=== PATIENT | male | born 1960 | race Caucasian/White ===

== ENCOUNTER 2021-01-21 01:12 | Observation (INO) ==
[2021-01-21] MEDS ORDERED: ALBUTEROL/IPRATROPIUM 3 ML NEB RESP TX STA (02:32)
[2021-01-21] MEDS ORDERED: methylPREDNISolone SOD SUC 125 MG/2 ML VIAL IV STA (02:32)
[2021-01-21 04:13] LABS: Bilirubin,Urine Negative (Negative); Blood, Urine Small mg/dL (Negative); Glucose,Urine (UA) Negative (Negative); Ketones,Urine Negative (Negative); Nitrite,Urine Negative (Negative); Protein,Urine Negative; RBC,Urine <1 /HPF (0-4); Urine Appearance CLEAR (Clear); Urine Color Yellow (Yellow); Urine Urobilinogen < 2.0 EU/DL (0.2-1.0)
[2021-01-21 04:13] LABS: Basophils % 0.5 % (0.0-0.8); Eosinophils # 0.2 10*3/uL (0.0-0.87); Eosinophils % 5.6 % (0.00-10.9); Hemoglobin 11.3 GM/DL (14.0-18.0); Immature Granulocytes % 0.2 %; Immature Granulocytes Absolute 0.01 #; Lymphocytes # 1.5 10*3/uL (1.4-4.0); Lymphocytes % 34.3 % (21.2-54.2); Mean Corpuscular HGB Conc 32.3 GM/DL (32-36); Mean Corpuscular Volume 90.4 FL (87-102); Mean Platelet Volume 9.6 FL (9.6-12.0); Monocytes % 8.5 % (1.7-12.7); Neutrophils % 50.9 % (38.7-73.9); Platelet Count 209 T/CUMM (130-400); Red Blood Count 3.87 MC/CUMM (3.8-5.5); Red Cell Distribution Width 13.8 % (9.3-17.3); White Blood Count 4.3 T/CUMM (4-12)
[2021-01-21 04:31] LABS: Albumin 2.9 G/DL (3.4-5.0); Bilirubin,Total 0.5 MG/DL (0.20-1.00); Calcium 8.6 MG/DL (8.5-10.1); Potassium 4.3 MMOL/L (3.5-5.1); Total Protein 6.6 G/DL (6.4-8.2)
[2021-01-21] MEDS ORDERED: ACETAMINOPHEN 325 MG TABLET PO PRN (05:37)
[2021-01-21] MEDS ORDERED: DEXTROSE 50% 25 GM/50 ML VIAL IV PRN (05:37)
[2021-01-21] MEDS ORDERED: GLUCAGON 1 MG VIAL IM PRN (05:37)
[2021-01-21] MEDS ORDERED: SODIUM CHLORIDE 0.9% 1,000 ML IV STA (05:47)
[2021-01-21] MEDS ORDERED: SODIUM CHLORIDE 0.9% 1,000 ML IV SCH (06:00)
[2021-01-21 06:50] LABS: % Iron Saturation 17.9 % (18-50)
[2021-01-21 07:33] LABS: Hematocrit 37.3 VOL% (42.0-52.0); Hemoglobin 12.3 GM/DL (14.0-18.0)
[2021-01-21] MEDS: ALBUTEROL/IPRATROPIUM 3 ML NEB RESP TX SCH ×3 (07:50→20:25)
[2021-01-21] MEDS: metroNIDAZOLE INJ 500 MG/100 ML PREMIX IV SCH ×2 (10:16→16:38)
[2021-01-21] MEDS: PANTOPRAZOLE 40 MG VIAL IV SCH ×2 (10:16→21:15)
[2021-01-21 11:23] LABS: Hepatitis B Core IgM Quant 0.19 Index; Hepatitis B Surface Ag Quant < 0.10 Index; Hepatitis B Surface Ag Result Non-Reactive (NonReactive); Hepatitis C Virus Ab Quant 7.37 Index
[2021-01-21 12:22] LABS: Hematocrit 32.9 VOL% (42.0-52.0); Hemoglobin 10.6 GM/DL (14.0-18.0)
[2021-01-21 15:38] LABS: Hepatitis C Virus Ab Quant 5.58 Index
[2021-01-21] MEDS: FERROUS SULFATE 325 MG TABLET PO SCH (16:38)
[2021-01-21] MEDS: SODIUM CHLORIDE 0.9% 1,000 ML IV SCH (16:40)
[2021-01-21 19:38] LABS: Hematocrit 31.1 VOL% (42.0-52.0)
[2021-01-21] MEDS: cefTRIAXone 1,000 MG in SODIUM CHLORIDE 0.9% 100 ML IV SCH (21:15)
[2021-01-21] MEDS: DIAZEPAM 5 MG TABLET PO SCH (21:15)
[2021-01-22 01:54] LABS: Hematocrit 29.3 VOL% (42.0-52.0); Hemoglobin 9.7 GM/DL (14.0-18.0)
[2021-01-22] MEDS: ALBUTEROL/IPRATROPIUM 3 ML NEB RESP TX SCH ×4 (02:10→19:10)
[2021-01-22] MEDS: metroNIDAZOLE INJ 500 MG/100 ML PREMIX IV SCH ×3 (03:15→17:25)
[2021-01-22 05:16] LABS: Hematocrit 29.2 VOL% (42.0-52.0); Hemoglobin 9.5 GM/DL (14.0-18.0); Immature Granulocytes % 0.4 %; Immature Granulocytes Absolute 0.02 #; Lymphocytes # 0.5 10*3/uL (1.4-4.0); Lymphocytes % 9.6 % (21.2-54.2); Mean Corpuscular HGB Conc 32.5 GM/DL (32-36); Monocytes % 6.1 % (1.7-12.7); Neutrophils % 83.9 % (38.7-73.9); Platelet Count 204 T/CUMM (130-400); Red Blood Count 3.32 MC/CUMM (3.8-5.5); Red Cell Distribution Width 13.6 % (9.3-17.3); White Blood Count 4.8 T/CUMM (4-12)
[2021-01-22 05:57] LABS: Calcium 8.1 MG/DL (8.5-10.1); Osmolality,Calculated 280.8 MOS/KG (273-304); Potassium 3.3 MMOL/L (3.5-5.1); Thyroid Stimulating Hormone 0.39 uIU/ml (0.358-3.74)
[2021-01-22] MEDS: LEVOTHYROXINE 25 MCG TABLET PO SCH (06:01)
[2021-01-22] MEDS ORDERED: LACTATED RINGERS 1,000 ML IV SCH (08:00)
[2021-01-22] MEDS: SODIUM CHLORIDE 0.9% 1,000 ML IV SCH ×2 (08:28→14:13)
[2021-01-22] MEDS: PANTOPRAZOLE 40 MG VIAL IV SCH ×2 (08:29→23:04)
[2021-01-22] MEDS: TRIAMCINOLONE 0.1% OINT 15 GM TUBE TOP SCH (08:30)
[2021-01-22] MEDS: DIAZEPAM 5 MG TABLET PO SCH ×2 (09:39→23:02)
[2021-01-22] MEDS: MULTIVITAMIN (CENTRUM) TABLET PO SCH (09:39)
[2021-01-22] MEDS: FERROUS SULFATE 325 MG TABLET PO SCH ×2 (09:39→17:24)
[2021-01-22] MEDS: PARoxetine 20 MG TABLET PO SCH (09:40)
[2021-01-22] MEDS ORDERED: LIDOCAINE 2% 5 ML VIAL ONE (12:42)
[2021-01-22] MEDS ORDERED: propofoL 200 MG/20 ML VIAL IV ONE (12:42)
[2021-01-22] MEDS ORDERED: POTASSIUM CHLORIDE 20 MEQ TABLET PO ONE (13:36)
[2021-01-22] MEDS: NICOTINE 21 MG/24 HR PATCH TRANSDERM SCH (14:09)
[2021-01-22] MEDS ORDERED: BISACODYL 5 MG TABLET PO ONE (15:00)
[2021-01-22] MEDS ORDERED: POLYETHYLENE GLYCOL POWDER 255 GM BOTTLE PO ONE (18:00)
[2021-01-22 18:32] LABS: Hematocrit 30.5 VOL% (42.0-52.0)
[2021-01-22] MEDS: cefTRIAXone 1,000 MG in SODIUM CHLORIDE 0.9% 100 ML IV SCH (23:04)
[2021-01-23] MEDS: ALBUTEROL/IPRATROPIUM 3 ML NEB RESP TX SCH ×4 (03:24→19:33)
[2021-01-23] MEDS ORDERED: POLYETHYLENE GLYCOL POWDER 255 GM BOTTLE PO ONE (05:00)
[2021-01-23] MEDS: metroNIDAZOLE INJ 500 MG/100 ML PREMIX IV SCH ×3 (05:11→17:12)
[2021-01-23] MEDS: SODIUM CHLORIDE 0.9% 1,000 ML IV SCH (06:02)
[2021-01-23 06:29] LABS: Basophils % 0.3 % (0.0-0.8); Eosinophils # 0.1 10*3/uL (0.0-0.87); Eosinophils % 1.8 % (0.00-10.9); Hematocrit 28.3 VOL% (42.0-52.0); Hemoglobin 9.2 GM/DL (14.0-18.0); Immature Granulocytes % 0.5 %; Immature Granulocytes Absolute 0.02 #; Lymphocytes # 0.6 10*3/uL (1.4-4.0); Mean Corpuscular HGB Conc 32.5 GM/DL (32-36); Mean Corpuscular Volume 90.1 FL (87-102); Mean Platelet Volume 10.2 FL (9.6-12.0); Monocytes % 6.8 % (1.7-12.7); Neutrophils % 75.6 % (38.7-73.9); Platelet Count 212 T/CUMM (130-400); Red Blood Count 3.14 MC/CUMM (3.8-5.5); Red Cell Distribution Width 14.4 % (9.3-17.3); White Blood Count 3.8 T/CUMM (4-12)
[2021-01-23 06:36] LABS: INR 1.1
[2021-01-23 07:05] LABS: Calcium 8.1 MG/DL (8.5-10.1); Osmolality,Calculated 279.1 MOS/KG (273-304); Potassium 3.2 MMOL/L (3.5-5.1)
[2021-01-23] MEDS: FERROUS SULFATE 325 MG TABLET PO SCH ×2 (09:24→17:13)
[2021-01-23] MEDS: MULTIVITAMIN (CENTRUM) TABLET PO SCH (09:25)
[2021-01-23] MEDS: PARoxetine 20 MG TABLET PO SCH (09:26)
[2021-01-23] MEDS: DIAZEPAM 5 MG TABLET PO SCH ×2 (09:27→22:14)
[2021-01-23] MEDS: LEVOTHYROXINE 25 MCG TABLET PO SCH (09:28)
[2021-01-23] MEDS: PANTOPRAZOLE 40 MG VIAL IV SCH ×2 (09:34→22:14)
[2021-01-23] MEDS: NICOTINE 21 MG/24 HR PATCH TRANSDERM SCH (09:35)
[2021-01-23] MEDS: TRIAMCINOLONE 0.1% OINT 15 GM TUBE TOP SCH (09:38)
[2021-01-23] MEDS ORDERED: SODIUM CHLOR 0.9% KCL 40 MEQ 40 MEQ/1,000 ML BAG IV SCH (10:00)
[2021-01-23] MEDS: LACTATED RINGERS 1,000 ML IV SCH (12:40)
[2021-01-23] MEDS ORDERED: propofoL 200 MG/20 ML VIAL IV ONE (13:40)
[2021-01-23] MEDS ORDERED: LIDOCAINE 2% 5 ML VIAL ONE (13:40)
[2021-01-23] MEDS: cefTRIAXone 1,000 MG in SODIUM CHLORIDE 0.9% 100 ML IV SCH (22:18)
[2021-01-24] MEDS: metroNIDAZOLE INJ 500 MG/100 ML PREMIX IV SCH ×3 (01:18→17:00)
[2021-01-24] MEDS: ALBUTEROL/IPRATROPIUM 3 ML NEB RESP TX SCH ×3 (01:30→14:15)
[2021-01-24 05:13] LABS: Basophils % 0.5 % (0.0-0.8); Eosinophils # 0.2 10*3/uL (0.0-0.87); Eosinophils % 6.2 % (0.00-10.9); Hematocrit 29.3 VOL% (42.0-52.0); Hemoglobin 9.4 GM/DL (14.0-18.0); Immature Granulocytes % 0.3 %; Immature Granulocytes Absolute 0.01 #; Lymphocytes # 1.2 10*3/uL (1.4-4.0); Lymphocytes % 31.2 % (21.2-54.2); Mean Corpuscular HGB Conc 32.1 GM/DL (32-36); Mean Corpuscular Volume 90.2 FL (87-102); Mean Platelet Volume 9.9 FL (9.6-12.0); Monocytes % 8.6 % (1.7-12.7); Neutrophils % 53.2 % (38.7-73.9); Platelet Count 223 T/CUMM (130-400); Red Blood Count 3.25 MC/CUMM (3.8-5.5); Red Cell Distribution Width 14.8 % (9.3-17.3); White Blood Count 3.9 T/CUMM (4-12)
[2021-01-24 05:49] LABS: Calcium 7.9 MG/DL (8.5-10.1); Osmolality,Calculated 272.7 MOS/KG (273-304); Potassium 3.5 MMOL/L (3.5-5.1)
[2021-01-24] MEDS: LEVOTHYROXINE 25 MCG TABLET PO SCH (05:50)
[2021-01-24] MEDS ORDERED: MAGNESIUM SULF RIDER 2 GM/50 ML PREMIX IV ONE (07:04)
[2021-01-24] MEDS: DIAZEPAM 5 MG TABLET PO SCH (08:57)
[2021-01-24] MEDS: PARoxetine 20 MG TABLET PO SCH (08:58)
[2021-01-24] MEDS: FERROUS SULFATE 325 MG TABLET PO SCH ×2 (08:58→17:00)
[2021-01-24] MEDS: MULTIVITAMIN (CENTRUM) TABLET PO SCH (08:58)
[2021-01-24] MEDS: NICOTINE 21 MG/24 HR PATCH TRANSDERM SCH (09:00)
[2021-01-24] MEDS: PANTOPRAZOLE 40 MG VIAL IV SCH (09:06)
[2021-01-24] MEDS: TRIAMCINOLONE 0.1% OINT 15 GM TUBE TOP SCH (09:08)
[2021-01-24] MEDS: LACTATED RINGERS 1,000 ML IV SCH (11:11)
[2021-01-24 11:50] VITALS: BP 110/69
== END 2021-01-24 17:25 | disposition home or self-care (01) ==
LOC: SUATTDRO → N.ED 01:12 → N.EDINP 01:12 → SUATTDRO 05:37 → N.5E 08:08
PROVIDERS: ADMIT Internal Medicine; ATTEND Internal Medicine